=== PATIENT | male | born 1945 | race Two or more races ===

== ENCOUNTER 2022-05-28 07:36 | Day surgery (SDC) | payer OTHER ==
[~2022-05-28] VITALS: Ht 175.3 cm; Wt 77.1 kg
[~2022-05-28 07:36] MED LIST: LEVO PO; LEVO-T50 MCG; SERTRALINE HCL50 MG PO; SIMVAST PO; ZESTRIL5 MG PO
[2022-05-28] MEDS ORDERED: PERCOCET 5-3251 EACH PO (14:58)
== END 2022-05-28 20:35 | disposition home or self-care (01) ==
LOC: CIR.AMB 07:36
PROVIDERS: ATTEND Surgery
DX: K64.8 Other hemorrhoids (principal); K62.5 Hemorrhage of anus and rectum; Z20.822 Contact with and (suspected) exposure to COVID-19; I10 Essential (primary) hypertension; E03.9 Hypothyroidism, unspecified; K21.9 Gastro-esophageal reflux disease without esophagitis